=== PATIENT | female | born 1955 | race Caucasian/White ===

== ENCOUNTER 2020-12-21 07:50 | Day surgery (SDC) | payer MEDICARE ==
[2020-12-19 13:32] VITALS: BMI 26.6
[2020-12-21] MEDS ORDERED: Neomycin-Polymyxin 1 ML AMP ONE (09:20)
[2020-12-21] MEDS ORDERED: Bupivacaine PF 0.5% 30 ML VIAL ONE (09:20)
[2020-12-21] MEDS ORDERED: Fentanyl 100 MCG/2 ML VIAL ONE (09:26)
[2020-12-21] MEDS ORDERED: PROPOFOL 20 ML ONE (09:26)
[2020-12-21] MEDS ORDERED: Ondansetron PF 4 MG/2 ML Vial ONE (09:27)
[2020-12-21] MEDS ORDERED: Midazolam HCl 2 mg/2 ml Vial ONE (09:27)
[2020-12-21] MEDS ORDERED: Dexamethasone 20 MG/5 ML VIAL ONE (09:27)
[2020-12-21] MEDS ORDERED: ePHEDrine Sulfate 50 MG/10 ML VIAL ONE (10:16)
== END 2020-12-21 11:30 | disposition home or self-care (01) ==
LOC: CSHSDC 07:50
PROVIDERS: ATTEND Podiatrist Foot & Ankle Surgery
PROC: 0QSN04Z Reposition Right Metatarsal with Internal Fixation Device, Open Approach (ICD-10-PCS; principal; 2020-12-21)
DX: M20.11 Hallux valgus (acquired), right foot (principal); M85.80 Other specified disorders of bone density and structure, unspecified site; G47.00 Insomnia, unspecified; F41.8 Other specified anxiety disorders; F17.210 Nicotine dependence, cigarettes, uncomplicated; I10 Essential (primary) hypertension; E78.5 Hyperlipidemia, unspecified; E66.9 Obesity, unspecified; Z79.899 Other long term (current) drug therapy
CPT/HCPCS: 28296; 73620; 76000; C1713; J0690; J1100; J2250; J2405; J2704; J3010; S0020